=== PATIENT | female | born 1965 | race Caucasian/White ===

== ENCOUNTER 2020-03-22 11:25 | Inpatient (IN) | payer OTHER, MEDICAID ==
[~2020-03-22] VITALS: Ht 167.6 cm; Wt 83.5 kg
[2020-03-22] MEDS ORDERED: SODIUM CHLORIDE 0.9% 1,000 ML IV ONE ×2 (11:27)
[2020-03-22 11:52] LABS: Basophils # (auto) 0 10 ^3/uL (0-0.2); Basophils % (auto) 0.4 % (0.0-2.0); Eosinophils # (auto) 0.1 10 ^3/uL (0-0.8); Eosinophils % (auto) 0.5 % (0.0-7.0); Hematocrit 40.8 % (36.0-46.0); Hemoglobin 13.9 g/dL (12.2-16.2); Lymphocytes # (auto) 1.1 10 ^3/uL (0.4-5.4); Lymphocytes % (auto) 11.3 % (10.0-50.0); Mean Corpuscular Volume 91.2 fL (80.0-100.0); Monocytes # (auto) 0.5 10 ^3/uL (0-1.3); Monocytes % (auto) 5.4 % (0.0-12.0); Neutrophils # (auto) 8.2 10 ^3/uL (1.6-8.6); Neutrophils % (auto) 82.4 % (37.0-80.0); Platelet Count (auto) 265 10^3/uL (140-450); Red Blood Cells 4.47 10^6/uL (4.0-5.20); Red Cell Distribution Width 12.3 % (11.8-14.3); White Blood Cell 9.9 10^3/uL (4.4-10.8)
[2020-03-22 12:08] LABS: INR 1.02 (0.9-1.15); Partial Thromboplastin Time 28.9 sec (23.64-32.05)
[2020-03-22 12:29] LABS: Anion Gap 13 (5-15); Blood Urea Nitrogen 8 mg/dL (7-18); Calcium 10.2 mg/dL (8.5-10.1); Carbon Dioxide 20 mmol/L (21-32); Chloride 91 mmol/L (98-107); Glucose 98 mg/dL (74-106); Potassium 3.5 mmol/L (3.5-5.1); Sodium 124 mmol/L (136-145)
[2020-03-22 12:35] LABS: Alanine Aminotransferase 14 U/L (13-56); Alkaline Phosphatase 67 U/L (45-117); Aspartate Aminotransferase 15 U/L (15-37); BUN/Creatinine Ratio 9.8; Bilirubin, Total 0.9 mg/dL (0.2-1.0); GFR African American 93 mL/min; GFR Non-African American 77 mL/min; Total Protein 7.3 g/dL (6.4-8.2)
[2020-03-22] MEDS ORDERED: LORazepam 2MG/ML-1ML VIAL IV ONE (14:45)
[2020-03-22] MEDS ORDERED: PANTOPRAZOLE 40 MG/10 ML VIAL INJ IV ONE (15:00)
[2020-03-22 15:23] LABS: Urine Bacteria FEW /hpf (None Seen); Urine Blood 2+ /uL (Negative); Urine Mucus FEW (None Seen); Urine Specific Gravity 1.013 (1.001-1.035); Urine WBC 68 /hpf (0 - 5)
[2020-03-22 15:34] LABS: Alcohol, Urine < 3.0 mg/dL (0-10); Amphetamine Screen, Urine POSITIVE (NEGATIVE); Barbiturate Scree,Urine NEGATIVE (NEGATIVE); Benzodiazephine Screen, Urine POSITIVE (NEGATIVE); Cannabinoid Screen, Urine NEGATIVE (NEGATIVE); Cocaine Screen, Urine NEGATIVE (NEGATIVE); Opiate Scree,Urine NEGATIVE (NEGATIVE); Phencyclidine Screen, Urine NEGATIVE (NEGATIVE)
[2020-03-22] MEDS ORDERED: cefTRIAXone 1GM/50ML D5W 50 ML IV ONE ×3 (16:00→16:30)
[2020-03-22] MEDS ORDERED: NITROGLYCERIN 0.4 MG SL TAB SL PRN ×3 (16:15→17:00)
[2020-03-22] MEDS ORDERED: MORPHINE SULF INJ 2 MG/ML SYRINGE 1ML IV PRN ×2 (16:15→17:00)
[2020-03-22] MEDS ORDERED: MORPHINE SULF INJ 2 MG/ML SYRINGE 1ML IV ONE (16:30)
[2020-03-22] MEDS ORDERED: ONDANSETRON HCL 4 MG/2 ML VIAL IV ONE (16:30)
[2020-03-22] MEDS ORDERED: HYDROmorphone HCL 2 MG/ML VL IV PRN (17:00)
[2020-03-22] MEDS ORDERED: DOCUSATE SOD 100 MG CAP PO PRN (17:00)
[2020-03-22] MEDS ORDERED: MORPHINE SULFATE 4 MG/ML SYR/VIAL IV PRN (17:00)
--- NOTE | 2020-03-22 17:13 | NUR ---
Telemetry admit from ER STEPHAN TAVARES admitted to Telemetry unit after SBAR received. Patient oriented to Irina roger RN, unit, room, bed, and unit policies regarding patient care and visiting hours. Patient now on continuous telemetry monitoring, tele box #[id number] and telemetry reading on arrival to unit is SR. Patient weighed by bedscale and encouraged to call if they need something. All questions and concerns addressed, patient verbalized understanding.
[2020-03-22 17:18] VITALS: BP 133/65
[2020-03-22 17:34] VITALS: BP 133/65
[2020-03-22] MEDS ORDERED: LURA40TA PO (18:01)
[2020-03-22] MEDS ORDERED: LEVO100T8 PO (18:01)
[2020-03-22] MEDS ORDERED: VORT10TA (18:01)
[2020-03-22] MEDS ORDERED: TRAZ100T3 PO (18:01)
[2020-03-22] MEDS ORDERED: QUET200T44 PO (18:01)
[2020-03-22] MEDS ORDERED: ALPR1TAB7 (18:01)
[2020-03-22] MEDS: ASPirin 81 mg TAB PO SCH (18:31)
[2020-03-22 18:55] LABS: INR 2.07 (0.9-1.15)
[2020-03-22 18:58] LABS: Cholesterol 180 mg/dL (< 200)
[2020-03-22 19:02] LABS: HDL Cholesterol 61 mg/dL (40-59); LDL Cholesterol 104 mg/dL (< 100); Triglycerides 109 mg/dL (< 150)
[2020-03-22 22:00] VITALS: BP 135/70
[2020-03-22] MEDS: SOD CHL 0.45% 1,000 ML IV SCH (22:03)
[2020-03-22] MEDS: ATORVASTATIN 20 MG TAB PO SCH (22:05)
[2020-03-22] MEDS: METOPROLOL TARTRATE 25 MG TAB PO SCH (22:07)
[2020-03-22] MEDS: ONDANSETRON HCL 4 MG/2 ML VIAL IV PRN (22:08)
--- NOTE | 2020-03-22 22:11 | NUR ---
PT APPEARS TO BE VERY ANXIOUS. PT TAKES XANAX 1MG TID AT HOME AND HOSPITALIST PAGED AT THIS TIME FOR ORDERS TO RESUME HOME MEDICATION.
--- NOTE | 2020-03-22 22:40 | NUR ---
NORIS BROUSSARD CERTIFED REFRIGERATION OPERATOR RETURNED PAGE AT THIS TIME. ASKED FOR ORDERS TO RESUME HOME MEDS AND NOTIFIED HOSPITALIST OF N/V POST ZOFRAN ADMIN AND NO NEW ORDERS, JUST CONTINUE ZOFRAN PER ORDERS.
[2020-03-23 05:00] VITALS: BP 122/60
[2020-03-23 06:18] LABS: Albumin 3.6 g/dL (3.4-5.0); Calcium 9.4 mg/dL (8.5-10.1); Magnesium 2.1 mg/dL (1.6-2.6); Potassium 3.7 mmol/L (3.5-5.1)
[2020-03-23 06:20] LABS: BUN/Creatinine Ratio 7.4; Bilirubin, Total 0.6 mg/dL (0.2-1.0); Phosphorus 1.7 mg/dL (2.5-4.90); Total Protein 6.8 g/dL (6.4-8.2)
[2020-03-23 06:23] LABS: Basophils % (auto) 0.2 % (0.0-2.0); Eosinophils # (auto) 0.1 10 ^3/uL (0-0.8); Eosinophils % (auto) 0.9 % (0.0-7.0); Lymphocytes # (auto) 0.9 10 ^3/uL (0.4-5.4); Lymphocytes % (auto) 9.7 % (10.0-50.0); Monocytes # (auto) 0.7 10 ^3/uL (0-1.3); Monocytes % (auto) 7.5 % (0.0-12.0); Neutrophils # (auto) 7.8 10 ^3/uL (1.6-8.6); Neutrophils % (auto) 81.7 % (37.0-80.0); White Blood Cell 9.6 10^3/uL (4.4-10.8)
[2020-03-23 06:24] LABS: Basophils # (auto) 0 10 ^3/uL (0-0.2); Hemoglobin 13.6 g/dL (12.2-16.2); Mean Corpuscular Hgb Conc. 34.1 g/dL (32.0-36.0); Platelet Count (auto) 250 10^3/uL (140-450); Red Blood Cells 4.39 10^6/uL (4.0-5.20); Red Cell Distribution Width 12.6 % (11.8-14.3)
[2020-03-23 06:29] LABS: INR 1.03 (0.9-1.15); Partial Thromboplastin Time 29.1 sec (23.64-32.05)
[2020-03-23] MEDS: LEVOTHYROXINE SODIUM 100 MCG TAB PO SCH (06:49)
[2020-03-23 08:00] VITALS: BP 117/69
[2020-03-23 09:00] VITALS: BP 117/69
[2020-03-23] MEDS: SOD CHL 0.45% 1,000 ML IV SCH (09:47)
[2020-03-23] MEDS: TRINTELLIX 10 MG PO SCH (10:00)
[2020-03-23] MEDS ORDERED: ENOXAPARIN SOD 40 MG/0.4 ML SYRINGE SC SCH (10:00)
[2020-03-23] MEDS: MAGNESIUM OXIDE 400 MG TAB PO SCH ×2 (10:03→22:39)
[2020-03-23] MEDS: CLOPIDOGREL BISULFATE 75 MG TAB PO SCH (10:04)
[2020-03-23] MEDS: DOCUSATE SOD 100 MG CAP PO SCH (10:04)
[2020-03-23] MEDS: METOPROLOL TARTRATE 25 MG TAB PO SCH ×2 (10:05→22:39)
[2020-03-23] MEDS: CEFTRIAXONE SODIUM 2 GM in D5W 5% 50 ML IV SCH (10:06)
[2020-03-23] MEDS: ASPirin 81 mg TAB PO SCH (11:13)
[2020-03-23 12:52] VITALS: BP 107/71
--- NOTE | 2020-03-23 13:25 | NUR ---
12 LEAD EKG DONE PER DOCTOR'S ORDER. SHOWS SB AT 57
--- NOTE | 2020-03-23 13:30 | NUR ---
PATIENT DENIES PAIN AND NAUSEA AT THIS TIME. WILL CONTINUE TO MONITOR Q1HR AND PRN
--- NOTE | 2020-03-23 14:10 | NUR ---
PATIENT SEEN TRYING TO PULL OUT IV. APPEARS TO BE CONFUSED WITH GOWN THROW IN THE BIN. PATIENT RELOCATED TO ROOM 221B AT THIS TIME WITH SITTER AT BEDSIDE
[2020-03-23] MEDS ORDERED: SODIUM PHOSPHATES 40 MEQ in D5W 5% 250 ML IV ONE ×2 (15:30→20:00)
[2020-03-23 17:00] VITALS: BP 121/66
[2020-03-23] MEDS: SODIUM CHLORIDE 0.9% 1,000 ML IV SCH (18:17)
[2020-03-23] MEDS: ONDANSETRON HCL 4 MG/2 ML VIAL IV PRN (18:46)
--- NOTE | 2020-03-23 19:00 | NUR ---
SPOKE TO PHARMACY ABOUT NOT RECEIVING SOD PHOSPHATE 40MEQ, THE ONE TIME ORDER. PHARMACY WILL BULLET UP TO UNIT AND RESCHEDULE TIME.
--- NOTE | 2020-03-23 19:30 | NUR ---
OPENING SHIFT NOTE PT IS IN BED WITH EYES OPEN AND APPEARS AGITATED AND RESTLESS. PT IS REPOSITIONING IN THE BED FREQUENTLY BY LYING HER HEAD AT THE FOOT OF THE BED. RESP RATE IS EVEN AND UNLABORED. SITTER AT BEDSIDE. BED IS LOW, WHEELS ARE LOCKED AND CALL LIGHT IS WITH IN REACH.
[2020-03-23 22:00] VITALS: BP 115/53
[2020-03-23] MEDS ORDERED: QUEtiapine FUMARATE 100 MG TAB PO SCH (22:00)
[2020-03-23] MEDS ORDERED: traZODone HCL 50 MG TAB PO SCH (22:00)
[2020-03-23] MEDS: ATORVASTATIN 20 MG TAB PO SCH (22:39)
--- NOTE | 2020-03-24 01:00 | NUR ---
PT REFUSING TELE.
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
[2020-03-24 05:00] VITALS: BP 124/58
[2020-03-24 06:49] LABS: BUN/Creatinine Ratio 7.4; Calcium 9.3 mg/dL (8.5-10.1); Potassium 3.3 mmol/L (3.5-5.1)
[2020-03-24] MEDS: LEVOTHYROXINE SODIUM 100 MCG TAB PO SCH (06:56)
--- NOTE | 2020-03-24 06:57 | NUR ---
PT IS CONFUSED AND TAKING TELE MONITOR OFF AND REFUSING TO WEAR IT.
--- NOTE | 2020-03-24 07:30 | NUR ---
Opening Shift Note Assumed care of patient, awake alert, and oriented. No S/S of distress/SOB or pain. Patient stating "She wants to leave, we can't hold her here against her will." Informed patient that I would inform MD of hr wishes. Bed in lowest/locked position, bed rails upx2,call light within reach. Instructed on POC and to call for assist PRN. Will continue to monitor for changes Q1hr and PRN.
[2020-03-24 08:30] VITALS: BP 117/66
[2020-03-24] MEDS: ASPirin 81 mg TAB PO SCH (09:15)
[2020-03-24] MEDS: CEFTRIAXONE SODIUM 2 GM in D5W 5% 50 ML IV SCH (09:15)
[2020-03-24] MEDS: SODIUM CHLORIDE 0.9% 1,000 ML IV SCH (09:15)
[2020-03-24] MEDS: MAGNESIUM OXIDE 400 MG TAB PO SCH (09:15)
[2020-03-24] MEDS: DOCUSATE SOD 100 MG CAP PO SCH (09:16)
[2020-03-24] MEDS: METOPROLOL TARTRATE 25 MG TAB PO SCH (09:18)
[2020-03-24] MEDS: CLOPIDOGREL BISULFATE 75 MG TAB PO SCH (09:20)
[2020-03-24] MEDS: TRINTELLIX 10 MG PO SCH (09:21)
[2020-03-24] MEDS ORDERED: POTASSIUM CHL 20 Meq TABLET PO ONE (09:30)
--- NOTE | 2020-03-24 09:40 | NUR ---
TELE PSYCH SPOKE WITH DEEPAK TELE PSYCH BOILER TECHNICIAN. PER DEEPAK; PATIENT WAS ASSESSED AT 830 AM. DEEPAK WILL SEND TELE PSYCH FORM. WILL CONTINUE TO MONITOR
--- NOTE | 2020-03-24 09:50 | NUR ---
MD ROUNDS DR SIDHU INSTRUCTING PATIENT ON POC. PATENT STATED "SHE WANTS TO LEAVE AGAINST MEDICAL ADVICE." DR SIDHU INSTRUCTED PATIENT OF RISKS AND ENCOURAGED PATIENT TO FOLLOW UP WITH PRIMARY CARE DR LEWIS. PATIENT VERBALIZED UNDERSTANDING. PATIENT CONTINUES TO REQUEST TO LEAVE
--- NOTE | 2020-03-24 11:00 | NUR ---
AMA Note STEPHAN TAVARES states they want to leave the hospital Against Medical Advice (AMA). Patient encouraged to stay for further treatment/stabilization. MD SIDHU notified of patient's wishes. Patient advised of the risks and benefits of leaving AMA. Patient verbalized understanding. Patient encouraged to return to the ER if symptoms do not improve or worsen. IV discontinued, catheter intact, tele monitor returned to ICU. Patient escorted to vehicle by security. No s/s of distress, SOB, or c/o pain at departure
== END 2020-03-24 11:06 | disposition left against medical advice (07) | DRG 690 ==
LOC: ER 11:25 → TELE 11:26 → TELE-CENTR 17:22
PROVIDERS: ADMIT Hospitalist; ATTEND Internal Medicine
DX: N30.00 Acute cystitis without hematuria (principal); E87.1 Hypo-osmolality and hyponatremia; D68.4 Acquired coagulation factor deficiency; E86.0 Dehydration; F41.9 Anxiety disorder, unspecified; D72.829 Elevated white blood cell count, unspecified; E78.5 Hyperlipidemia, unspecified; E03.9 Hypothyroidism, unspecified; F15.10 Other stimulant abuse, uncomplicated; F31.9 Bipolar disorder, unspecified; E83.52 Hypercalcemia; F29 Unspecified psychosis not due to a substance or known physiological condition; Z53.29 Procedure and treatment not carried out because of patient's decision for other reasons; F17.210 Nicotine dependence, cigarettes, uncomplicated; F19.10 Other psychoactive substance abuse, uncomplicated; Z71.51 Drug abuse counseling and surveillance of drug abuser; Z71.6 Tobacco abuse counseling
CPT/HCPCS: 36415; 70450; 71045; 80048; 80053; 80061; 80307; 81001; 83036; 83735; 83880; 84100; 84439; 84443; 84484; 85025; 85610; 85730; 87040; 87086; 87088; 87186; 93005; 96361; 96365; 96375; 99291; C9113; G0378; J0696; J2405; J7060